=== PATIENT | female | born 1950 | race Caucasian/White ===

== ENCOUNTER → 2017-05-17 | Outpatient (CLI) | payer MEDICARE, BC, OTHER ==
[2016-11-22 11:00] VITALS: BP 119/66
[~2017-05-17] MED LIST: AMOX1TAB61 PO; ASPI-482 PO; BIOT5CAP3 PO; CETI10TA22 PO; CRESTOR10 MG PO; DIPH25CA58 PO; DOCU100C28 PO; DOXY100C2 PO; FURO-69 PO; GLIM4TAB2 PO; HYDR12.58 PO; Iron PO; LACT10SO PO; LORA10TA3 PO; METF-620 PO; METO25TA4 PO; MOME17SP NS; MONT10TA9 PO; MV,C1TAB19 PO; OMEP20TA8 PO; PRED1TAB3 PO; PROAIR HFA8.5 GM IH; SITA1TAB11 PO; SPIR100T2 PO; TAURINE PO; TIOT18CA IH; [UNRECOGNIZED DRUG - CODE] PO; [UNRECOGNIZED DRUG - OTHER] PO
--- NOTE | 2017-05-18 14:44 | CARD ---
APPROVED REPORT EXAM: Two-dimensional and M-mode echocardiogram with Doppler and color Doppler. Other Information Quality : GoodHR: 81bpm Rhythm : NSR INDICATION Tricuspid regurgitation, Aortic valve stenosis RISK FACTORS Hypertension Obesity 2D DIMENSIONS RVDd4.0 (2.9-3.5cm)Left Atrium(2D)4.7 (1.6-4.0cm) IVSd1.0 (0.7-1.1cm)Aortic Root(2D)2.5 (2.0-3.7cm) LVDd5.3 (3.9-5.9cm)LVOT Diameter2.3 (1.8-2.4cm) PWd1.0 (0.7-1.1cm)LVDs3.5 (2.5-4.0cm) FS (%) 34.8 %SV86.1 ml LVEF(%)64.0 (>50%) Aortic Valve AoV Peak Moe.254.0cm/sAoV VTI54.4cm AO Peak GR.25.8mmHgLVOT Peak Moe.146.1cm/s AO Mean GR.14mmHgAVA (VMAX)2.34cm2 Mitral Valve MV E Dtnvzddm509.7cm/sMV E Peak Gr.5mmHg MV DECEL [id number] A Roozmcrj962.3cm/s MV E Mean Gr.3mmHgE/A Ratio0.9 MV A Fvurboqu11ce Pulmonary Valve PV Peak Dmnbimod635.1cm/s Tricuspid Valve TR P. Fdyvvwzu503cj/sTR Peak Gr.21mmHg Pulmonary Vein S1 Zkbtqjqt39.6cm/sD2 Ixljrfrk74.2cm/s PVa ajbkvtjg99atad LEFT VENTRICLE The left ventricle is normal size. There is concentric left ventricular hypertrophy The left ventricu lar systolic function is normal and the ejection fraction is within normal range. The Ejection Fracti on is 64%. There is normal LV segmental wall motion. Transmitral Doppler flow pattern is Grade I-abno rmal relaxation pattern. RIGHT VENTRICLE The right ventricle is mildly dilated. There is normal right ventricular wall thickness. The right ve ntricular systolic function is normal. ATRIA The left atrium is borderline dilated. The right atrium is borderline dilated. AORTIC VALVE The aortic valve is moderately sclerotic. The aortic valve is trileaflet. Doppler and Color Flow reve aled no significant aortic regurgitation. Calculated aortic valve area is 1.6 cm2 with maximum pressu re gradient of mmHg and mean pressure gradient of mmHg. mild aortic stenosis MITRAL VALVE Mitral annular calcification is mild. The mitral valve leaflets are thickened. There is no evidence o f mitral valve prolapse. There is no mitral valve stenosis. Doppler and Color Flow revealed no mitral valve regurgitation noted. TRICUSPID VALVE Doppler and Color Flow revealed trace tricuspid regurgitation. The pulmonary artery systolic pressure is estimated at 24 mmHg. There is no pulmonary hypertension. PULMONIC VALVE Doppler and Color Flow revealed trace pulmonic valvular regurgitation. There is no pulmonic valvular stenosis. GREAT VESSELS The aortic root is normal in size. The ascending aorta is normal in size. The pulmonary artery is nor mal. The IVC is normal in size and collapses >50% with inspiration. PERICARDIAL EFFUSION There is no evidence of significant pericardial effusion. Critical Notification Critical Value: No <Conclusion> The left ventricular systolic function is normal and the ejection fraction is within normal range. The Ejection Fraction is 64%. Transmitral Doppler flow pattern is Grade I-abnormal relaxation pattern. There is concentric left ventricular hypertrophy The right ventricle is mildly dilated. The left atrium is borderline dilated. The right atrium is borderline dilated. The aortic valve is moderately sclerotic. The aortic valve is trileaflet. Calculated aortic valve area is 1.6 cm2 with maximum pressure gradient of mmHg and mean pressure gra dient of mmHg. mild aortic stenosis Mitral annular calcification is mild. The mitral valve leaflets are thickened. Doppler and Color Flow revealed trace tricuspid regurgitation. The pulmonary artery systolic pressure is estimated at 24 mmHg. There is no pulmonary hypertension. Doppler and Color Flow revealed trace pulmonic valvular regurgitation. There is no evidence of significant pericardial effusion.
== END | disposition home or self-care (01) ==
LOC: ECHO 08:15
PROVIDERS: ATTEND Internal Medicine Cardiovascular Disease
DX: I08.2 Rheumatic disorders of both aortic and tricuspid valves (principal)
CPT/HCPCS: 93306

== ENCOUNTER → 2017-12-12 | Outpatient (CLI) | payer MEDICARE, BC, OTHER | END | disposition home or self-care (01) | LOC: US 15:16 | DX: Z12.31 Encounter for screening mammogram for malignant neoplasm of breast (principal); I25.10 Atherosclerotic heart disease of native coronary artery without angina pectoris; D25.9 Leiomyoma of uterus, unspecified | CPT/HCPCS: 76830; 76856; 77067 ==

== ENCOUNTER 2017-12-22 22:49 | Inpatient (IN) | payer MEDICARE, BC, OTHER ==
[2017-12-22 23:32] LABS: ADD MAN DIFF? NO
[2017-12-22 23:40] LABS: BILIRUBIN,URINE NEGATIVE (NEG); CLARITY,URINE CLEAR; COLOR,URINE AMBER; GLUCOSE,URINE NEGATIVE (NEG); NITRITE,URINE NEGATIVE (NEG); PH,URINE 5.5; PROTEIN,URINE NEGATIVE (NEG-TRACE)
[2017-12-22 23:45] LABS: BASO % 0 % (0-3); EOS % 0 % (0-3); HEMATOCRIT 29.9 % (36.0-47.0); HEMOGLOBIN 9.8 g/dL (12.0-15.5); LYMPH # 0.4 x10^3/uL (1.0-4.8); LYMPH % 9 % (24-48); MEAN CORPUSCULAR HEMOGLOBIN 29 pg (25-35); MEAN CORPUSCULAR HGB CONC 33 g/dL (31-37); MEAN CORPUSCULAR VOLUME 87 fL (79-100); MONO # 0.7 x10^3/uL (0.0-1.1); MONO % 15 % (0-9); NEUT # 3.3 x10^3uL (1.8-7.7); NEUT % 75 % (31-73); PLATELET COUNT 124 x10^3/uL (140-400); RED BLOOD COUNT 3.44 x10^6/uL (3.50-5.40); RED CELL DISTRIBUTION WIDTH 17.1 % (11.5-14.5); WHITE BLOOD COUNT 4.4 x10^3/uL (4.0-11.0)
[2017-12-22 23:46] LABS: AMORPHOUS SEDIMENT,UR PRESENT /HPF; ANION GAP 8 (6-14); BACTERIA,URINE 0 /HPF (0-FEW); BLOOD UREA NITROGEN 14 mg/dL (7-20); BUN/CREATININE RATIO 13 (6-20); CALCIUM 9.2 mg/dL (8.5-10.1); CARBON DIOXIDE 28 mmol/L (21-32); CHLORIDE 101 mmol/L (98-107); CREATININE 1.1 mg/dL (0.6-1.0); GFR 49.5; GLUCOSE 152 mg/dL (70-99); HYALINE CASTS, URINE MODERATE /HPF; POTASSIUM 3.5 mmol/L (3.5-5.1); RBC,URINE 0 /HPF (0-2); SODIUM 137 mmol/L (136-145); SQUAMOUS EPITHELIAL CELL,UR OCC /LPF
[2017-12-22 23:50] LABS: AMMONIA 32 mcmol/L (11-34)
[2017-12-22 23:51] LABS: ALBUMIN 3.2 g/dL (3.4-5.0); ALBUMIN/GLOBULIN RATIO 0.7 (1.0-1.7); ALK PHOS 80 U/L (46-116); ALT (SGPT) 66 U/L (14-59); AST (SGOT) 120 U/L (15-37); LIPASE 188 U/L (73-393); TOTAL BILIRUBIN 1.3 mg/dL (0.2-1.0); TOTAL PROTEIN 7.5 g/dL (6.4-8.2)
[2017-12-22 23:54] LABS: TROPONINI < 0.017 ng/mL (0.000-0.055)
[2017-12-23 00:23] LABS: INFLUENZA A PATIENT POSITIVE (NEGATIVE); INFLUENZA B PATIENT NEGATIVE (NEGATIVE); OBC FLU VALID
[2017-12-23] MEDS: IV NORMAL SALINE 1000ML BAG 1,000 ML IV ×2 (00:57→01:15)
[2017-12-23] MEDS: OSELTAMIVIR 75 MG CAPSULE PO ×3 (00:57→21:09)
[2017-12-23] MEDS ORDERED: ONDANSETRON PF 4 MG/2 ML VIAL. IV (01:15)
[2017-12-23] MEDS: ACETAMINOPHEN 325 MG TABLET. PO ×2 (01:43→12:52)
[2017-12-23] MEDS: fentaNYL PF VIAL 100 MCG/2 ML VIAL IV ×2 (01:44→21:10)
[2017-12-23 04:10] LABS: LACTIC ACID 1.6 mmol/L (0.4-2.0)
[2017-12-23 08:29] LABS: POC GLUCOSE 69 mg/dL (70-99)
[2017-12-23 08:29] LABS: POC GLUCOSE 51 mg/dL (70-99)
[2017-12-23] MEDS ORDERED: NON FORMULARY ITEM (Albuterol Sulfate (Proair Hfa Inhaler) 2 PUFF) IH (10:15)
[2017-12-23 11:39] LABS: POC GLUCOSE 138 mg/dL (70-99)
[2017-12-23] MEDS: ALBUTEROL SULFATE 2.5 MG/3 ML NEBU. NEB ×3 (12:08→20:30)
[2017-12-23] MEDS: AZELASTINE NASAL SPRAY 30ML BOTTLE. NS ×2 (12:50→21:11)
[2017-12-23] MEDS: SPIRONOLACTONE 25 MG TABLET PO (12:52)
[2017-12-23] MEDS: PANTOPRAZOLE 40 MG TABLET.DR. PO (12:52)
[2017-12-23] MEDS: rifAXIMin 550 MG TABLET PO ×2 (12:53→21:09)
[2017-12-23] MEDS: CETIRIZINE HCL 10 MG TABLET. PO (12:53)
[2017-12-23] MEDS: METOPROLOL TART IMMED RELEASE 25 MG TABLET. PO ×2 (12:53→21:09)
[2017-12-23] MEDS: TORSEMIDE 20 MG TABLET. PO (12:54)
[2017-12-23] MEDS: LACTULOSE 20 GM/30 ML SOLUTION. PO (12:54)
[2017-12-23] MEDS: LINAGLIPTIN 5 MG TABLET PO (12:54)
[2017-12-23] MEDS: ENOXAPARIN 40 MG/0.4 ML SYRINGE. SQ ×2 (12:55→21:09)
[2017-12-23] MEDS: POLYETHYLENE GLYCOL 3350 17 GM PACKET. PO (13:30)
[2017-12-23 16:59] LABS: POC GLUCOSE 119 mg/dL (70-99)
[2017-12-23] MEDS: GLIMEPIRIDE 2 MG TABLET. PO (17:46)
[2017-12-23 20:34] LABS: POC GLUCOSE 156 mg/dL (70-99)
[2017-12-23] MEDS ORDERED: INSULIN DETEMIR 300 UNITS/3 ML INSULN.PEN. SQ (21:00)
[2017-12-23] MEDS: ATORVASTATIN CALCIUM 40 MG TABLET. PO (21:09)
[2017-12-24 05:53] LABS: ADD MAN DIFF? NO
[2017-12-24 06:13] LABS: ANION GAP 4 (6-14); BLOOD UREA NITROGEN 17 mg/dL (7-20); CALCIUM 8.3 mg/dL (8.5-10.1); CARBON DIOXIDE 31 mmol/L (21-32); CHLORIDE 101 mmol/L (98-107); CREATININE 1.1 mg/dL (0.6-1.0); GFR 49.5; GLUCOSE 112 mg/dL (70-99); POTASSIUM 3.6 mmol/L (3.5-5.1); SODIUM 136 mmol/L (136-145)
[2017-12-24 06:17] LABS: BASO % 1 % (0-3); EOS % 1 % (0-3); HEMATOCRIT 26.8 % (36.0-47.0); HEMOGLOBIN 8.7 g/dL (12.0-15.5); LYMPH # 1.5 x10^3/uL (1.0-4.8); LYMPH % 34 % (24-48); MEAN CORPUSCULAR HEMOGLOBIN 28 pg (25-35); MEAN CORPUSCULAR HGB CONC 33 g/dL (31-37); MEAN CORPUSCULAR VOLUME 87 fL (79-100); MONO # 0.7 x10^3/uL (0.0-1.1); MONO % 15 % (0-9); NEUT # 2.2 x10^3uL (1.8-7.7); NEUT % 50 % (31-73); PLATELET COUNT 109 x10^3/uL (140-400); RED CELL DISTRIBUTION WIDTH 17.3 % (11.5-14.5); WHITE BLOOD COUNT 4.5 x10^3/uL (4.0-11.0)
[2017-12-24] MEDS: ALBUTEROL SULFATE 2.5 MG/3 ML NEBU. NEB (07:48)
[2017-12-24 08:06] LABS: POC GLUCOSE 87 mg/dL (70-99)
[2017-12-24] MEDS: ENOXAPARIN 40 MG/0.4 ML SYRINGE. SQ ×2 (09:00→21:00)
[2017-12-24] MEDS: rifAXIMin 550 MG TABLET PO ×2 (09:00→21:25)
[2017-12-24] MEDS: OSELTAMIVIR 75 MG CAPSULE PO ×2 (10:21→21:25)
[2017-12-24] MEDS: ACETAMINOPHEN 325 MG TABLET. PO (10:21)
[2017-12-24] MEDS: PANTOPRAZOLE 40 MG TABLET.DR. PO (10:22)
[2017-12-24] MEDS: METOPROLOL TART IMMED RELEASE 25 MG TABLET. PO ×2 (10:22→21:00)
[2017-12-24] MEDS: GLIMEPIRIDE 2 MG TABLET. PO ×2 (10:22→18:37)
[2017-12-24] MEDS: CETIRIZINE HCL 10 MG TABLET. PO (10:22)
[2017-12-24] MEDS: SPIRONOLACTONE 25 MG TABLET PO (10:23)
[2017-12-24] MEDS: POLYETHYLENE GLYCOL 3350 17 GM PACKET. PO (10:24)
[2017-12-24] MEDS: LINAGLIPTIN 5 MG TABLET PO (10:24)
[2017-12-24] MEDS: TORSEMIDE 20 MG TABLET. PO (10:25)
[2017-12-24] MEDS: AZELASTINE NASAL SPRAY 30ML BOTTLE. NS ×2 (10:26→21:24)
[2017-12-24] MEDS ORDERED: guaiFENesin DM 200MG/20MG 10 ML SYRUP PO (11:15)
[2017-12-24] MEDS: IPRATRPIUM/ALBUTEROL 0.5/2.5MG 3 ML NEBU. NEB ×3 (11:43→20:46)
[2017-12-24 13:37] LABS: POC GLUCOSE 177 mg/dL (70-99)
[2017-12-24 17:53] LABS: POC GLUCOSE 116 mg/dL (70-99)
[2017-12-24 20:51] LABS: POC GLUCOSE 192 mg/dL (70-99)
[2017-12-24] MEDS: ATORVASTATIN CALCIUM 40 MG TABLET. PO (21:25)
[2017-12-24] MEDS: MELOXICAM 7.5 MG TABLET PO (21:32)
[2017-12-25 06:46] LABS: ADD MAN DIFF? NO
[2017-12-25 07:02] LABS: BASO % 0 % (0-3); EOS # 0.1 x10^3/uL (0.0-0.7); EOS % 3 % (0-3); HEMATOCRIT 26.2 % (36.0-47.0); HEMOGLOBIN 8.5 g/dL (12.0-15.5); LYMPH # 1.4 x10^3/uL (1.0-4.8); LYMPH % 42 % (24-48); MEAN CORPUSCULAR HEMOGLOBIN 28 pg (25-35); MEAN CORPUSCULAR HGB CONC 32 g/dL (31-37); MEAN CORPUSCULAR VOLUME 87 fL (79-100); MONO # 0.4 x10^3/uL (0.0-1.1); MONO % 12 % (0-9); NEUT # 1.4 x10^3uL (1.8-7.7); NEUT % 43 % (31-73); PLATELET COUNT 99 x10^3/uL (140-400); RED BLOOD COUNT 3.03 x10^6/uL (3.50-5.40); RED CELL DISTRIBUTION WIDTH 17.1 % (11.5-14.5); WHITE BLOOD COUNT 3.4 x10^3/uL (4.0-11.0)
[2017-12-25 07:17] LABS: ALBUMIN 2.5 g/dL (3.4-5.0); ALBUMIN/GLOBULIN RATIO 0.7 (1.0-1.7); ALK PHOS 68 U/L (46-116); ALT (SGPT) 46 U/L (14-59); ANION GAP 7 (6-14); AST (SGOT) 66 U/L (15-37); BLOOD UREA NITROGEN 21 mg/dL (7-20); BUN/CREATININE RATIO 18 (6-20); CALCIUM 8.7 mg/dL (8.5-10.1); CARBON DIOXIDE 31 mmol/L (21-32); CHLORIDE 104 mmol/L (98-107); CREATININE 1.2 mg/dL (0.6-1.0); GFR 44.8; GLUCOSE 110 mg/dL (70-99); POTASSIUM 3.3 mmol/L (3.5-5.1); SODIUM 142 mmol/L (136-145); TOTAL BILIRUBIN 0.8 mg/dL (0.2-1.0); TOTAL PROTEIN 6.2 g/dL (6.4-8.2)
[2017-12-25 07:51] LABS: POC GLUCOSE 104 mg/dL (70-99)
[2017-12-25 07:58] LABS: INR 1.1 (0.8-1.1); PROTHROMBIN TIME PATIENT 13.8 SEC (11.7-14.0)
[2017-12-25] MEDS: IPRATRPIUM/ALBUTEROL 0.5/2.5MG 3 ML NEBU. NEB ×4 (08:17→19:16)
[2017-12-25] MEDS: rifAXIMin 550 MG TABLET PO ×2 (08:53→20:27)
[2017-12-25] MEDS: TORSEMIDE 20 MG TABLET. PO (08:53)
[2017-12-25] MEDS: PANTOPRAZOLE 40 MG TABLET.DR. PO (08:53)
[2017-12-25] MEDS: ENOXAPARIN 40 MG/0.4 ML SYRINGE. SQ ×2 (08:53→20:28)
[2017-12-25] MEDS: POLYETHYLENE GLYCOL 3350 17 GM PACKET. PO (08:53)
[2017-12-25] MEDS: FERROUS SULFATE 325 MG TABLET. PO (08:55)
[2017-12-25] MEDS: SPIRONOLACTONE 25 MG TABLET PO (08:55)
[2017-12-25] MEDS: GLIMEPIRIDE 2 MG TABLET. PO ×2 (08:57→17:33)
[2017-12-25] MEDS: OSELTAMIVIR 75 MG CAPSULE PO ×2 (08:57→20:27)
[2017-12-25] MEDS: METOPROLOL TART IMMED RELEASE 25 MG TABLET. PO (08:57)
[2017-12-25] MEDS: LINAGLIPTIN 5 MG TABLET PO (08:58)
[2017-12-25] MEDS: CETIRIZINE HCL 10 MG TABLET. PO (08:58)
[2017-12-25] MEDS ORDERED: ONDANSETRON PF 4 MG/2 ML VIAL. IV (10:00)
[2017-12-25] MEDS: IV NORMAL SALINE 1000ML BAG 1,000 ML IV ×2 (11:27→20:23)
[2017-12-25] MEDS: AZELASTINE NASAL SPRAY 30ML BOTTLE. NS ×2 (11:27→20:27)
[2017-12-25] MEDS: POTASSIUM CHLORIDE 20 MEQ TABLET.ER. PO (11:28)
[2017-12-25] MEDS ORDERED: MAGNESIUM HYDROXIDE 2,400 MG/30 ML ORAL.SUSP. PO (12:00)
[2017-12-25] MEDS ORDERED: POLYETHYLENE GLYCOL 3350 17 GM PACKET. PO (12:00)
[2017-12-25 12:02] LABS: POC GLUCOSE 189 mg/dL (70-99)
[2017-12-25] MEDS: DOCUSATE SODIUM 100 MG CAPSULE. PO (14:27)
[2017-12-25 17:14] LABS: POC GLUCOSE 188 mg/dL (70-99)
[2017-12-25] MEDS: ATORVASTATIN CALCIUM 40 MG TABLET. PO (20:28)
[2017-12-25 21:45] LABS: POC GLUCOSE 178 mg/dL (70-99)
[2017-12-26] MEDS: IV NORMAL SALINE 1000ML BAG 1,000 ML IV ×2 (05:24→16:57)
[2017-12-26] MEDS: ACETAMINOPHEN 325 MG TABLET. PO (05:28)
[2017-12-26 07:57] LABS: POC GLUCOSE 129 mg/dL (70-99)
[2017-12-26] MEDS: IPRATRPIUM/ALBUTEROL 0.5/2.5MG 3 ML NEBU. NEB ×4 (08:24→19:42)
[2017-12-26] MEDS: GLIMEPIRIDE 2 MG TABLET. PO ×2 (08:35→16:57)
[2017-12-26] MEDS: POLYETHYLENE GLYCOL 3350 17 GM PACKET. PO (08:35)
[2017-12-26] MEDS: PANTOPRAZOLE 40 MG TABLET.DR. PO (08:36)
[2017-12-26] MEDS: rifAXIMin 550 MG TABLET PO ×2 (08:36→21:34)
[2017-12-26] MEDS: DOCUSATE SODIUM 100 MG CAPSULE. PO (08:36)
[2017-12-26] MEDS: OSELTAMIVIR 75 MG CAPSULE PO ×2 (08:36→21:35)
[2017-12-26] MEDS: LINAGLIPTIN 5 MG TABLET PO (08:36)
[2017-12-26] MEDS: CETIRIZINE HCL 10 MG TABLET. PO (08:36)
[2017-12-26] MEDS: AZELASTINE NASAL SPRAY 30ML BOTTLE. NS ×2 (08:37→21:35)
[2017-12-26] MEDS: ENOXAPARIN 40 MG/0.4 ML SYRINGE. SQ ×2 (08:42→21:35)
[2017-12-26 11:31] LABS: POC GLUCOSE 201 mg/dL (70-99)
[2017-12-26] MEDS: METOPROLOL TART IMMED RELEASE 25 MG TABLET. PO ×2 (11:42→21:35)
[2017-12-26] MEDS: BENZONATATE 100 MG CAPSULE. PO ×2 (15:16→21:39)
[2017-12-26 17:28] LABS: POC GLUCOSE 110 mg/dL (70-99)
[2017-12-26] MEDS: ATORVASTATIN CALCIUM 40 MG TABLET. PO (21:34)
[2017-12-27] MEDS: IV NORMAL SALINE 1000ML BAG 1,000 ML IV (02:00)
[2017-12-27 04:25] LABS: ADD MAN DIFF? NO
[2017-12-27 04:34] LABS: BASO % 0 % (0-3); EOS # 0.1 x10^3/uL (0.0-0.7); EOS % 3 % (0-3); HEMOGLOBIN 8.6 g/dL (12.0-15.5); LYMPH # 1.1 x10^3/uL (1.0-4.8); LYMPH % 24 % (24-48); MEAN CORPUSCULAR HEMOGLOBIN 29 pg (25-35); MEAN CORPUSCULAR HGB CONC 33 g/dL (31-37); MEAN CORPUSCULAR VOLUME 87 fL (79-100); MONO # 0.5 x10^3/uL (0.0-1.1); MONO % 11 % (0-9); NEUT # 2.7 x10^3uL (1.8-7.7); NEUT % 61 % (31-73); PLATELET COUNT 87 x10^3/uL (140-400); RED BLOOD COUNT 2.99 x10^6/uL (3.50-5.40); RED CELL DISTRIBUTION WIDTH 17.2 % (11.5-14.5); WHITE BLOOD COUNT 4.4 x10^3/uL (4.0-11.0)
[2017-12-27 04:50] LABS: ALBUMIN 2.5 g/dL (3.4-5.0); ALBUMIN/GLOBULIN RATIO 0.7 (1.0-1.7); ALK PHOS 77 U/L (46-116); ALT (SGPT) 36 U/L (14-59); ANION GAP 6 (6-14); AST (SGOT) 42 U/L (15-37); BLOOD UREA NITROGEN 14 mg/dL (7-20); BUN/CREATININE RATIO 16 (6-20); CARBON DIOXIDE 29 mmol/L (21-32); CHLORIDE 108 mmol/L (98-107); CREATININE 0.9 mg/dL (0.6-1.0); GFR 62.5; GLUCOSE 162 mg/dL (70-99); SODIUM 143 mmol/L (136-145); TOTAL BILIRUBIN 0.8 mg/dL (0.2-1.0); TOTAL PROTEIN 6.3 g/dL (6.4-8.2)
[2017-12-27] MEDS: IPRATRPIUM/ALBUTEROL 0.5/2.5MG 3 ML NEBU. NEB ×2 (07:51→11:13)
[2017-12-27 08:13] LABS: POC GLUCOSE 122 mg/dL (70-99)
[2017-12-27] MEDS: ENOXAPARIN 40 MG/0.4 ML SYRINGE. SQ (08:24)
[2017-12-27] MEDS: LINAGLIPTIN 5 MG TABLET PO (08:25)
[2017-12-27] MEDS: POLYETHYLENE GLYCOL 3350 17 GM PACKET. PO (08:25)
[2017-12-27] MEDS: PANTOPRAZOLE 40 MG TABLET.DR. PO (08:25)
[2017-12-27] MEDS: BENZONATATE 100 MG CAPSULE. PO (08:25)
[2017-12-27] MEDS: GLIMEPIRIDE 2 MG TABLET. PO (08:26)
[2017-12-27] MEDS: DOCUSATE SODIUM 100 MG CAPSULE. PO (08:27)
[2017-12-27] MEDS: OSELTAMIVIR 75 MG CAPSULE PO (08:27)
[2017-12-27] MEDS: FERROUS SULFATE 325 MG TABLET. PO (08:27)
[2017-12-27] MEDS: METOPROLOL TART IMMED RELEASE 25 MG TABLET. PO (08:27)
[2017-12-27] MEDS: AZELASTINE NASAL SPRAY 30ML BOTTLE. NS (08:28)
[2017-12-27] MEDS: rifAXIMin 550 MG TABLET PO (08:28)
[2017-12-27] MEDS: CETIRIZINE HCL 10 MG TABLET. PO (08:28)
[2017-12-27 12:08] LABS: POC GLUCOSE 186 mg/dL (70-99)
== END 2017-12-27 15:50 | disposition home health service (06) | DRG 871 ==
LOC: ER 22:49 → 6 SOUTH 12-23 01:07
PROVIDERS: Internal Medicine Hematology & Oncology
DX: A41.9 Sepsis, unspecified organism (principal); G93.41 Metabolic encephalopathy; J96.01 Acute respiratory failure with hypoxia; E11.22 Type 2 diabetes mellitus with diabetic chronic kidney disease; D69.6 Thrombocytopenia, unspecified; E11.40 Type 2 diabetes mellitus with diabetic neuropathy, unspecified; Z68.41 Body mass index [BMI] 40.0-44.9, adult; G20 Parkinson's disease; I12.9 Hypertensive chronic kidney disease with stage 1 through stage 4 chronic kidney disease, or unspecified chronic kidney disease; E78.5 Hyperlipidemia, unspecified; J10.1 Influenza due to other identified influenza virus with other respiratory manifestations; E78.00 Pure hypercholesterolemia, unspecified; K21.9 Gastro-esophageal reflux disease without esophagitis; D64.9 Anemia, unspecified; J44.9 Chronic obstructive pulmonary disease, unspecified; N18.2 Chronic kidney disease, stage 2 (mild); J40 Bronchitis, not specified as acute or chronic; Z96.653 Presence of artificial knee joint, bilateral; E66.9 Obesity, unspecified; M79.1 Myalgia; M19.90 Unspecified osteoarthritis, unspecified site; K74.60 Unspecified cirrhosis of liver; R74.0 Nonspecific elevation of levels of transaminase and lactic acid dehydrogenase [LDH]; Z82.49 Family history of ischemic heart disease and other diseases of the circulatory system; Z88.1 Allergy status to other antibiotic agents; Z88.0 Allergy status to penicillin; Z88.2 Allergy status to sulfonamides; Z87.440 Personal history of urinary (tract) infections; Z98.49 Cataract extraction status, unspecified eye
CPT/HCPCS: 36415; 70450; 71045; 71046; 80048; 80053; 81001; 82140; 82962; 83605; 83690; 84484; 85025; 85610; 87040; 87804; 87804-59; 93005; 94618; 94640; 94760; 96360; 97116-GP; 97161-GP; 97165-GO; 97530-GO; 97530-GP; 97535-GO; 99285; 99285-25; J1650; J1815; J3010; J7030; J7613; J7620

== ENCOUNTER → 2018-03-27 | Outpatient (CLI) | payer MEDICARE, BC, OTHER | END | disposition home or self-care (01) | LOC: ECHO 08:54 | DX: Z01.810 Encounter for preprocedural cardiovascular examination (principal); I08.1 Rheumatic disorders of both mitral and tricuspid valves; I11.9 Hypertensive heart disease without heart failure | CPT/HCPCS: 93306 ==

== ENCOUNTER → 2018-11-26 | Outpatient (CLI) | payer MEDICARE, BC, OTHER ==
[2017-12-27 14:41] VITALS: BP 110/43
[~2018-11-26] MED LIST changes: +ALBU2.5V8 IH; +AZEL137S3 NS; +FERR325T14 PO; +INSU100I13 SQ; +IOHEXOL 300 MG/ML 100ML VIAL. IV ONE; +MELO15TA23 PO; -METF-620 PO; +METF10007 PO; +OMEP40CA5 PO; +POLY17PO29 PO; -PROAIR HFA8.5 GM IH; +RIFA550T4 PO; +SITA100T PO; -SPIR100T2 PO; +SPIR100T4 PO; +TORS20TA2 PO
--- NOTE | 2018-11-26 14:47 | KCIC ---
PQRS Compliance Statement: One or more of the following individualized dose reduction techniques were utilized for this examination: 1. Automated exposure control 2. Adjustment of the mA and/or kV according to patient size 3. Use of iterative reconstruction technique CT neck with contrast November 26, 2018 INDICATION: Right parotid swelling, decreased after antibiotics. COMPARISON: None available TECHNIQUE: Multiple axial CT images of the neck were obtained after the intravenous demonstration of 95 cc Isovue-370. Coronal and sagittal reformats are provided. FINDINGS: No suspicious enhancing lesions are identified involving the visualized portions of the brain parenchyma and posterior fossa. Orbits are normal in appearance with exception of bilateral lens replacement. Paranasal sinuses are well aerated. Sella turcica appears intact on sagittal images. There may be mild flattening of the pituitary gland, nonspecific and likely normal variant. Arts Education Teacher space appears intact. Oral cavity, floor of mouth and sublingual spaces appear intact. Submandibular spaces are intact. No suspicious salivary gland tumor. Parotid glands are symmetric and normal in appearance. Parapharyngeal fat is preserved. No suspicious mucosal lesion involving the nasopharynx, oropharynx and hypopharynx. There is retropharyngeal course of the right common carotid artery and proximal right internal carotid artery. No suspicious laryngeal abnormality is identified. Trachea is intact. Heterogeneity of the thyroid gland with multinodular left thyroid lobe is noted. Left thyroid nodule measures up to 2.3 cm. No suspicious pulmonary parenchymal abnormality is identified. There are no pathologically enlarged cervical lymph nodes identified. No suspicious osseous abnormality is identified. Mild cervical spondylosis most prominent at C5-C6 and C6-C7. IMPRESSION: No suspicious parotid mass. No cystic or solid cervical mass is identified. No pathologically enlarged cervical lymphadenopathy. Electronically signed by: Aimee Ying MD (11/26/2018 2:42 PM) [facility]
== END | disposition home or self-care (01) ==
LOC: KCIC CT 13:14
PROVIDERS: ATTEND Family Medicine
DX: M47.812 Spondylosis without myelopathy or radiculopathy, cervical region (principal); E04.1 Nontoxic single thyroid nodule; K11.8 Other diseases of salivary glands
CPT/HCPCS: 70491; Q9967

== ENCOUNTER → 2019-01-07 | Outpatient (CLI) | payer MEDICARE, BC, OTHER ==
[2017-12-27 14:41] VITALS: BP 110/43
[~2019-01-07] MED LIST changes: -IOHEXOL 300 MG/ML 100ML VIAL. IV ONE
--- NOTE | 2019-01-07 13:44 | RAD ---
DATE: 01/07/2019 EXAM: MAMMO ABHIJEET SCREENING BILATERAL HISTORY: Routine screening COMPARISON: 12/12/2017 This study was interpreted with the benefit of Computerized Aided Detection (CAD). Breast Density: SCATTERED The breast parenchyma shows scattered fibroglandular densities. Breast parenchyma level B. FINDINGS: 2-D and 3-D tomosynthesis imaging was performed in CC and MLO projections. The fibroglandular tissues are heterogeneous and somewhat nodular in character. No new or enlarging breast densities are seen. Scattered benign type calcifications are present. No suspicious microcalcifications have developed. IMPRESSION: Stable mammograms without evidence of malignancy. BI-RADS CATEGORY: 2 BENIGN FINDING(S) RECOMMENDED FOLLOW-UP: 12M 12 MONTH FOLLOW-UP PQRS compliance statement: Patient information was entered into a reminder system with a target due date for the next mammogram. Mammography is a sensitive method for finding small breast cancers, but it does not detect them all and is not a substitute for careful clinical examination. A negative mammogram does not negate a clinically suspicious finding and should not result in delay in biopsying a clinically suspicious abnormality. "Our facility is accredited by the [employer] Mammography Program."
== END | disposition home or self-care (01) ==
LOC: MAMMO 12:52
PROVIDERS: ATTEND Family Medicine
DX: Z12.31 Encounter for screening mammogram for malignant neoplasm of breast (principal)
CPT/HCPCS: 77063; 77067

== ENCOUNTER → 2020-01-11 | Outpatient (CLI) | payer MEDICARE, BC, OTHER ==
[2017-12-27 14:41] VITALS: BP 110/43
[~2020-01-11] MED LIST changes: -CETI10TA22 PO; +CETI10TA24 PO; -GLIM4TAB2 PO; +GLIM4TAB8 PO; +MONT10TA49 PO; -MONT10TA9 PO; +OMEP40CA45 PO; -OMEP40CA5 PO
--- NOTE | 2020-01-12 18:05 | RAD ---
BILATERAL SCREENING MAMMOGRAM, 3-D History: Routine screening. Comparison: 12/26/2012, 02/16/2016, 10/04/2016, 12/12/2017, 01/07/2019 mammographic exams. Technique: MLO and CC digital tomosynthesis (3D) images obtained. Radiologist reviewed these images on dedicated workstation. Findings: Breast Tissue Density B : There are scattered areas of fibroglandular density. There are no dominant masses, suspicious microcalcifications, or architectural distortion. IMPRESSION: No mammographic evidence of malignancy. Recommend routine screening. BI-RADS category 1: Negative. The images were reviewed with computer-aided detection. Patient information is entered into reminder system with a target due date for the next screening mammogram. Mammography is the most sensitive method for finding small breast cancers, but it does not detect them all and is not a substitute for careful clinical examination. A negative mammogram does not negate a clinically suspicious finding and should not result in delay in biopsying a clinically suspicious abnormality. "Our facility is accredited by the [employer] Mammography Program." Electronically signed by: Deshawn Meier MD (01/12/2020 6:02 PM) [facility]
== END | disposition home or self-care (01) ==
LOC: MAMMO 08:57
PROVIDERS: ATTEND Family Medicine
DX: Z12.31 Encounter for screening mammogram for malignant neoplasm of breast (principal)
CPT/HCPCS: 77063; 77067

== ENCOUNTER 2022-01-04 21:34 | Emergency (ER) | payer MEDICARE, BC ==
[~2022-01-04] VITALS: Ht 154.9 cm; Wt 95.8 kg
[~2022-01-04 21:34] MED LIST changes: -CETI10TA24 PO; +CETI10TA74 PO; -DOXY100C2 PO; +DOXY100C3 PO; -MOME17SP NS; +MOME17SP5 NS; -OMEP40CA45 PO; +OMEP40CA7 PO
--- NOTE | 2022-01-04 22:14 | PHYS DOC ---
Past Medical History Past Medical History: Arthritis, Asthma, COPD, Diabetes-Type II, GERD, High Cholesterol, Hypertension, Renal Disease, UTI Additional Past Medical Histor: NEUROPATHY, ESOPHAGEAL VARICES, PARKIN[place], HEART DISEASE, CIRROHOSIS, Past Surgical History: Other Additional Past Surgical Histo: MARLI KNEE SX CATARACTS CARPAL TUNNEL THYROID BX Smoking Status: Former Smoker Alcohol Use: None Drug Use: None General Adult EDM: Chief Complaint: LACERATION/AVULSION HPI: HPI: Patient is a 71-year-old female who presents to the emergency department with a laceration to her left hand. Patient reports that 20 minutes prior to arrival she was trying to break up a block of ice with a serrated knife and slipped and punctured her left hand. Laceration is well approximated and not actively bleeding. Patient denies any decreased range of motion or decreased sensation to her extremity. She is unsure of her last tetanus shot. Review of Systems: Review of Systems: Constitutional: negative unless reported in HPI Eyes: negative unless reported in HPI HENT: negative unless reported in HPI Respiratory: negative unless reported in HPI Cardiovascular: negative unless reported in HPI GI: negative unless reported in HPI : negative unless reported in HPI Musculoskeletal: negative unless reported in HPI Integument: negative unless reported in HPI Neurologic: negative unless reported in HPI Endocrine: negative unless reported in HPI Lymphatic: negative unless reported in HPI Psychiatric: negative unless reported in HPI Heart Score: C/O Chest Pain: N/A Risk Factors: Risk Factors: DM, Current or recent (<one month) smoker, HTN, HLP, family history of CAD, obesity. Risk Scores: Score 0 - 3: 2.5% MACE over next 6 weeks - Discharge Home Score 4 - 6: 20.3% MACE over next 6 weeks - Admit for Clinical Observation Score 7 - 10: 72.7% MACE over next 6 weeks - Early Invasive Strategies Current Medications: Current Medications Medications (Trade) Dose Ordered Sig/Awais Start Time Stop Time Status Last Admin Dose Admin Diphtheria/ Tetanus/Acell Pertussis (Boostrix) 0.5 ml ONCE ONCE 01/04/22 22:30 01/04/22 22:31 Allergies: Allergies: Allergies Coded Allergies Type Severity Reaction Last Updated Verified hydromorphone Allergy Severe RESPIRATORY ARREST 01/04/22 Yes Penicillins Allergy Intermediate hives 01/04/22 Yes Sulfa (Sulfonamide Antibiotics) Allergy Intermediate hives 01/04/22 Yes cephalexin Allergy Intermediate hives 01/04/22 Yes ciprofloxacin Allergy Intermediate hives 01/04/22 Yes clarithromycin Allergy Intermediate slurred speech 01/04/22 Yes Physical Exam: PE: Constitutional: Well developed, well nourished, no acute distress, non-toxic appearance. [] HENT: Normocephalic, atraumatic, bilateral external ears normal, oropharynx moist, no oral exudates, nose normal. [] Eyes: PERRL, EOMI, conjunctiva normal, no discharge. [] Neck: Normal range of motion, no stridor Cardiovascular: Normal peripheral perfusion Lungs & Thorax: Normal work of breathing, no tachypnea Abdomen: Soft and flat Skin: Warm, dry, no erythema, no rash, 0.5cm superficial laceration to patients dorsal aspect of left hand proximal to base of thumb-no active bleeding, wound is well approximated. Back: Normal range of motion Extremities: No tenderness, no cyanosis, no clubbing, ROM intact, no edema. [] Neurologic: Alert and oriented X 3, normal motor function, normal sensory function, no focal deficits noted. [] Psychologic: Affect normal, judgement normal, mood normal. [] Current Patient Data: Vital Signs: Vital Signs Date Time Temp Pulse Resp B/P (MAP) Pulse Ox O2 Delivery O2 Flow Rate FiO2 01/04/22 21:44 97.8 92 18 165/77 (106) 96 Room Air 97.8 EKG: EKG: [] Radiology/Procedures: Radiology/Procedures: [] Course & Med Decision Making: Course & Med Decision Making Pertinent Labs and Imaging studies reviewed. (See chart for details) Patient presents to the emergency department today for a puncture to her left hand after stabbing herself accidentally with a serrated knife while trying to break up frozen ice. Patient was unsure of her last tetanus and this was updated in the emergency department. Puncture is well approximated. It was cleansed with sterile saline and was glued with Dermabond. Patient educated on laceration care. I discussed with patient all findings and diagnostic testing as well as the need to follow-up with PCP for further evaluation and treatment or return to the ER if any new or worsening symptoms. Strict return precautions were also discussed at length. Patient voiced understanding and agreement with the plan. Patient is hemodynamically stable at the time of disposition. Dragon Disclaimer: Dragon Disclaimer: This electronic medical record was generated, in whole or in part, using a voice recognition dictation system. Departure Departure Impression: Primary Impression: Laceration Disposition: HOME / SELF CARE / HOMELESS Condition: GOOD Referrals: MIAH BRADFORD MD (PCP) Patient Instructions: Laceration Care, Adult Additional Instructions: You were seen in the emergency department today for a laceration to your hand which was repaired with skin glue. Please keep this clean and dry. Please do not submerge your hand in any water for 2 to 3 days. Do not pick at the skin glue. Your tetanus was updated today. Monitor for any signs of infection which include redness, warmth, swelling or drainage. Follow-up with your primary care provider within a week. Return to the emergency department if you develop any signs of infection or increased pain, decreased range of motion or decreased sensation to your hand. CHERYL MCKINLEY APRN Jan 04, 2022 22:14
[2022-01-04 22:20] VITALS: BP 147/80
[2022-01-04] MEDS ORDERED: DIPHTH,PERTUSS(ACELL),TET TOX 0.5 ML DISP.SYRIN. VAX IM ONE (22:30)
== END 2022-01-04 22:20 | disposition home or self-care (01) ==
LOC: ER 21:34
DX: S61.412A Laceration without foreign body of left hand, initial encounter (principal); J44.9 Chronic obstructive pulmonary disease, unspecified; K21.9 Gastro-esophageal reflux disease without esophagitis; E78.00 Pure hypercholesterolemia, unspecified; I12.9 Hypertensive chronic kidney disease with stage 1 through stage 4 chronic kidney disease, or unspecified chronic kidney disease; E11.22 Type 2 diabetes mellitus with diabetic chronic kidney disease; N18.9 Chronic kidney disease, unspecified; E11.40 Type 2 diabetes mellitus with diabetic neuropathy, unspecified; Z87.891 Personal history of nicotine dependence; Z88.0 Allergy status to penicillin; Z88.1 Allergy status to other antibiotic agents; Z88.2 Allergy status to sulfonamides; Z88.8 Allergy status to other drugs, medicaments and biological substances; Z88.5 Allergy status to narcotic agent; W26.0XXA Contact with knife, initial encounter; Y93.89 Activity, other specified; Y92.89 Other specified places as the place of occurrence of the external cause; Y99.8 Other external cause status
CPT/HCPCS: 12001; 90471; 90715; 99283-25